=== PATIENT | female | born 1985 | race Caucasian/White ===

== ENCOUNTER → 2020-08-10 13:05 | Outpatient (BNVA) | payer OTHER, SELFPAY | PROVIDERS: Family Provider Nurse Practitioner; Visit Provider Nurse Practitioner Family | DX: Z20.828 Contact with and (suspected) exposure to other viral communicable diseases (principal) | CPT/HCPCS: 87635 ==

== ENCOUNTER 2021-05-05 12:59 | Observation (INO) | payer SELFPAY ==
[2021-05-05] VITALS (9 sets, daily range): BP systolic 100–144; BP diastolic 60–79; PULSE 50–81; RESP 16–18; TEMP 36.3–37.2; O2SAT 97–98; BMI 28.3; BMI 27.6
--- NOTE | 2021-05-05 13:46 | W.ED.ABDPA2 ---
Documented by User: MIR Piper 05/05/21 16:41 HPI - Abdominal Pain General: Chief Complaint: Abdominal Pain Stated Complaint: Lower right abd pain Time Seen by Provider: 05/05/21 13:40 Source: patient Mode of arrival: ambulatory Limitations: no limitations History of Present Illness: HPI narrative: Patient is a nice 35-year-old female who presents to ED today with a complaint of right lower abdominal pain that is been present over the past month. When asked what changed that made her seek emergent evaluation today she tells me that she is tired of doubling over in pain . She states pain seems to be worse with certain movements and states it is slightly alleviated by putting pressure to the area. She states there are periods where she does not have any discomfort but overall her pain has been fairly constant. She states when pain becomes severe she gets pale and diaphoretic. She reports nausea currently. She has not had any episodes of vomiting. She continues to have normal urinary and bowel habits. No fevers. States she had a hysterectomy several years ago. No masses/bulges felt. MD elicited complaint: abdominal pain Pertinent past history: none Onset (ago): week(s) Pain Consistency: intermittent Location: RLQ Radiation: none Migration to: no migration Associated Symptoms: Reports nausea; Denies change in stool character, chills, diarrhea, dysuria, fever(s) and vomiting Review of Systems Const: Denies: fever(s), chills, body aches, change in appetite, fatigue or malaise Card: Denies: chest pain Resp: Denies: dyspnea GI: Reports: abdominal pain and nausea; Denies: vomiting, diarrhea or change in stool character : Denies: flank pain, difficulty voiding, dysuria, urinary frequency, urinary urgency, vaginal odor, vaginal bleeding or vaginal discharge Musc: Denies: back pain Skin/Breast: Denies: rash Neuro: Denies: headache(s) PFSH ED PFSH: Medical History Cervical cancer Hepatitis C virus infection cured after antiviral drug therapy Quit drug use in remote past Smoker Surgical History H/O: hysterectomy History of lung surgery Family History Grandmother Chronic kidney disease (CKD) Social History Smoking and tobacco status: current every day smoker cigarettes Packs smoked per day: 0.25 Alcohol intake: never Substance/Drug Use: former Lives independently: Yes Household members: spouse Marital status: Physical Exam Const: COMMON NORMALS: no acute distress, average body habitus, patient oriented x3, no limitations, healthy appearing, alert and well nourished GENERAL APPEARANCE: cooperative Resp: COMMON NORMALS: normal respiratory effort and clear to auscultation bilaterally AUSCULTATION: clear to auscultation bilaterally Cardio: COMMON NORMALS: regular rate and regular rhythm RATE: regular rate RHYTHM: regular rhythm GI: COMMON NORMALS: Normal to inspection, nondistended, normoactive bowel sounds present, Soft to palpation, No hepatosplenomegaly present and no masses INSPECTION: Yes normal to inspection AUSCULTATION: Yes normoactive bowel sounds PALPATION: Yes Soft to palpation and Yes No hepatosplenomegaly present : COMMON NORMALS: Yes no CVA tenderness BLADDER/KIDNEY EXAM: Yes no CVA tenderness Back/Pelvis: COMMON NORMALS: no CVA tenderness Neuro: COMMON NORMALS: patient oriented x3 SENSORIUM/ORIENTATION: Yes alert Skin: COMMON NORMALS: no rashes or lesions noted GENERAL SKIN EXAM: no rashes or lesions noted Course Consultations: Consultation #1: Dr. Florence-accepts patient to observation; requests I speak to nephrology to have them onboard as well Consultation #2: Dr. Arnold/nephrology-graciously will follow patient while in hospital Vital Signs: Vital signs: Vital Signs Temperature 98.1 F 05/06/21 11:11 Pulse Rate 65 05/06/21 11:11 Respiratory Rate 16 05/06/21 11:11 Blood Pressure 131/79 05/06/21 11:11 Pulse Oximetry 97 05/06/21 11:11 MDM - Abdominal Pain Lab Data: Labs: Lab Results 05/05/21 05/05/21 05/05/21 Range/Units 14:38 14:38 14:38 WBC 11.4 H (4.0-10.0) 10^3/ uL RBC 4.93 (4.1-5.3) 10^6/u L Hgb 15.6 H (11.5-15.3) g/dL Hct 45.7 (37.0-47.0) % MCV 92.7 (81-99) fl MCH 31.6 (28.0-34.0) pg MCHC 34.1 (30.0-36.0) g/dL RDW 12.2 (12.1-15.1) % Plt Count 354 (130-400) 10^3/c mm MPV 10.1 (7.4-10.4) fL Neut % (Auto) 58.8 % Lymph % (Auto) 33.0 % Garden % (Auto) 6.1 % Eos % (Auto) 1.1 % Baso % (Auto) 0.7 % Neut # (Auto) 6.70 (1.8-7.7) 10^3/u L Lymph # (Auto) 3.8 (0.8-4.8) 10^3/u L Garden # (Auto) 0.7 (0.2-0.9) 10^3/u L Eos # (Auto) 0.1 (0.0-0.8) 10^3/u L Baso # (Auto) 0.1 (0.0-0.1) 10^3/u L Nucleated RBC % (a uto) 0 % Nucleated RBCs # 0.0 /100WBC Sodium Cancelled Potassium Cancelled Chloride Cancelled Carbon Dioxide Cancelled Anion Gap Cancelled BUN Cancelled Creatinine Cancelled GFR Calculation Cancelled Glucose Cancelled Calculated Osmolal ity Cancelled Calcium Cancelled Total Bilirubin Cancelled AST Cancelled ALT Cancelled Alkaline Phosphata se Cancelled Creatine Kinase (26-192) U/L Total Protein Cancelled Albumin Cancelled Globulin Cancelled Lipase (13-60) U/L HCG, Qual Negative (Negative) Urine Color (Yellow) Urine Appearance (CLEAR) Urine pH (5-7) Ur Specific Gravit y (1.005-1.030) Urine Protein (Negative) Urine Glucose (UA) (Normal) Urine Ketones (Negative) Urine Blood (Negative) Urine Nitrate (Negative) Urine Bilirubin (Negative) Urine Urobilinogen (Negative) mg/dL Ur Leukocyte Karon ase (Negative) Urine RBC (0-2) /hpf Urine WBC (0-5) /hpf Ur Squamous Epith Cells (0-5) /hpf Amorphous Sediment Urine Bacteria (NONE) /hpf Urine Mucus /hpf Ur Random Sodium mmol/L Ur Random Potassiu m mmol/L Ur Random Chloride mmol/L Urine Creatinine (28-217) mg/dL 05/05/21 05/05/21 05/05/21 Range/Units 14:38 14:38 14:38 WBC (4.0-10.0) 10^3/ uL RBC (4.1-5.3) 10^6/u L Hgb (11.5-15.3) g/dL Hct (37.0-47.0) % MCV (81-99) fl MCH (28.0-34.0) pg MCHC (30.0-36.0) g/dL RDW (12.1-15.1) % Plt Count (130-400) 10^3/c mm MPV (7.4-10.4) fL Neut % (Auto) % Lymph % (Auto) % Garden % (Auto) % Eos % (Auto) % Baso % (Auto) % Neut # (Auto) (1.8-7.7) 10^3/u L Lymph # (Auto) (0.8-4.8) 10^3/u L Garden # (Auto) (0.2-0.9) 10^3/u L Eos # (Auto) (0.0-0.8) 10^3/u L Baso # (Auto) (0.0-0.1) 10^3/u L Nucleated RBC % (a uto) % Nucleated RBCs # /100WBC Sodium Potassium Chloride Carbon Dioxide Anion Gap BUN Creatinine GFR Calculation Glucose Calculated Osmolal ity Calcium Total Bilirubin AST ALT Alkaline Phosphata se Creatine Kinase 91 (26-192) U/L Total Protein Albumin Globulin Lipase 43 (13-60) U/L HCG, Qual (Negative) Urine Color Yellow (Yellow) Urine Appearance Hazy A (CLEAR) Urine pH 5 (5-7) Ur Specific Gravit y 1.020 (1.005-1.030) Urine Protein Neg (Negative) Urine Glucose (UA) Norm (Normal) Urine Ketones Negative (Negative) Urine Blood Trace H (Negative) Urine Nitrate Negative (Negative) Urine Bilirubin Neg (Negative) Urine Urobilinogen 1 H (Negative) mg/dL Ur Leukocyte Karon ase Trace H (Negative) Urine RBC 0-4 H (0-2) /hpf Urine WBC 5-10 H (0-5) /hpf Ur Squamous Epith Cells 5-10 H (0-5) /hpf Amorphous Sediment Not Reportable Urine Bacteria 1+ H (NONE) /hpf Urine Mucus 2+ /hpf Ur Random Sodium mmol/L Ur Random Potassiu m mmol/L Ur Random Chloride mmol/L Urine Creatinine (28-217) mg/dL 05/05/21 05/05/21 Range/Units 14:38 14:38 WBC (4.0-10.0) 10^3/ uL RBC (4.1-5.3) 10^6/u L Hgb (11.5-15.3) g/dL Hct (37.0-47.0) % MCV (81-99) fl MCH (28.0-34.0) pg MCHC (30.0-36.0) g/dL RDW (12.1-15.1) % Plt Count (130-400) 10^3/c mm MPV (7.4-10.4) fL Neut % (Auto) % Lymph % (Auto) % Garden % (Auto) % Eos % (Auto) % Baso % (Auto) % Neut # (Auto) (1.8-7.7) 10^3/u L Lymph # (Auto) (0.8-4.8) 10^3/u L Garden # (Auto) (0.2-0.9) 10^3/u L Eos # (Auto) (0.0-0.8) 10^3/u L Baso # (Auto) (0.0-0.1) 10^3/u L Nucleated RBC % (a uto) % Nucleated RBCs # /100WBC Sodium Potassium Chloride Carbon Dioxide Anion Gap BUN Creatinine GFR Calculation Glucose Calculated Osmolal ity Calcium Total Bilirubin AST ALT Alkaline Phosphata se Creatine Kinase (26-192) U/L Total Protein Albumin Globulin Lipase (13-60) U/L HCG, Qual (Negative) Urine Color (Yellow) Urine Appearance (CLEAR) Urine pH (5-7) Ur Specific Gravit y (1.005-1.030) Urine Protein (Negative) Urine Glucose (UA) (Normal) Urine Ketones (Negative) Urine Blood (Negative) Urine Nitrate (Negative) Urine Bilirubin (Negative) Urine Urobilinogen (Negative) mg/dL Ur Leukocyte Karon ase (Negative) Urine RBC (0-2) /hpf Urine WBC (0-5) /hpf Ur Squamous Epith Cells (0-5) /hpf Amorphous Sediment Urine Bacteria (NONE) /hpf Urine Mucus /hpf Ur Random Sodium 156 157 mmol/L Ur Random Potassiu m 49 mmol/L Ur Random Chloride 147 mmol/L Urine Creatinine 146 (28-217) mg/dL Discharge Plan Discharge Patient Disposition: Placed in Observation Admit Provider: Bryan Florence Clinical Impression: Abdominal pain of unknown cause, Acute renal failure, Acute hyponatremia Discharge Diet: Usual diet Discharge Activity: Increase activity as tolerated Coding Level of Care Code ED Upfitter for Chg Fwd Exam Detailed Documented by User: Shelly Garcia MD 05/08/21 10:47 HPI - Abdominal Pain General: Chief Complaint: Abdominal Pain Stated Complaint: Lower right abd pain Time Seen by Provider: 05/05/21 13:40 PFSH ED PFSH: Medical History Cervical cancer Hepatitis C virus infection cured after antiviral drug therapy Quit drug use in remote past Smoker Surgical History H/O: hysterectomy History of lung surgery Family History Grandmother Chronic kidney disease (CKD) Social History Smoking and tobacco status: current every day smoker cigarettes Packs smoked per day: 0.25 Alcohol intake: never Substance/Drug Use: former Lives independently: Yes Household members: spouse Marital status: Course Vital Signs: Vital signs: Vital Signs Temperature 98.1 F 05/06/21 11:11 Pulse Rate 65 05/06/21 11:11 Respiratory Rate 16 05/06/21 11:11 Blood Pressure 131/79 05/06/21 11:11 Pulse Oximetry 97 05/06/21 11:11 MDM - Abdominal Pain Lab Data: Labs: Lab Results 05/05/21 05/05/21 05/05/21 Range/Units 14:38 14:38 14:38 WBC 11.4 H (4.0-10.0) 10^3/ uL RBC 4.93 (4.1-5.3) 10^6/u L Hgb 15.6 H (11.5-15.3) g/dL Hct 45.7 (37.0-47.0) % MCV 92.7 (81-99) fl MCH 31.6 (28.0-34.0) pg MCHC 34.1 (30.0-36.0) g/dL RDW 12.2 (12.1-15.1) % Plt Count 354 (130-400) 10^3/c mm MPV 10.1 (7.4-10.4) fL Neut % (Auto) 58.8 % Lymph % (Auto) 33.0 % Garden % (Auto) 6.1 % Eos % (Auto) 1.1 % Baso % (Auto) 0.7 % Neut # (Auto) 6.70 (1.8-7.7) 10^3/u L Lymph # (Auto) 3.8 (0.8-4.8) 10^3/u L Garden # (Auto) 0.7 (0.2-0.9) 10^3/u L Eos # (Auto) 0.1 (0.0-0.8) 10^3/u L Baso # (Auto) 0.1 (0.0-0.1) 10^3/u L Nucleated RBC % (a uto) 0 % Nucleated RBCs # 0.0 /100WBC Sodium Cancelled Potassium Cancelled Chloride Cancelled Carbon Dioxide Cancelled Anion Gap Cancelled BUN Cancelled Creatinine Cancelled GFR Calculation Cancelled Glucose Cancelled Calculated Osmolal ity Cancelled Calcium Cancelled Total Bilirubin Cancelled AST Cancelled ALT Cancelled Alkaline Phosphata se Cancelled Creatine Kinase (26-192) U/L Total Protein Cancelled Albumin Cancelled Globulin Cancelled Lipase (13-60) U/L HCG, Qual Negative (Negative) Urine Color (Yellow) Urine Appearance (CLEAR) Urine pH (5-7) Ur Specific Gravit y (1.005-1.030) Urine Protein (Negative) Urine Glucose (UA) (Normal) Urine Ketones (Negative) Urine Blood (Negative) Urine Nitrate (Negative) Urine Bilirubin (Negative) Urine Urobilinogen (Negative) mg/dL Ur Leukocyte Karon ase (Negative) Urine RBC (0-2) /hpf Urine WBC (0-5) /hpf Ur Squamous Epith Cells (0-5) /hpf Amorphous Sediment Urine Bacteria (NONE) /hpf Urine Mucus /hpf Ur Random Sodium mmol/L Ur Random Potassiu m mmol/L Ur Random Chloride mmol/L Urine Creatinine (28-217) mg/dL 05/05/21 05/05/21 05/05/21 Range/Units 14:38 14:38 14:38 WBC (4.0-10.0) 10^3/ uL RBC (4.1-5.3) 10^6/u L Hgb (11.5-15.3) g/dL Hct (37.0-47.0) % MCV (81-99) fl MCH (28.0-34.0) pg MCHC (30.0-36.0) g/dL RDW (12.1-15.1) % Plt Count (130-400) 10^3/c mm MPV (7.4-10.4) fL Neut % (Auto) % Lymph % (Auto) % Garden % (Auto) % Eos % (Auto) % Baso % (Auto) % Neut # (Auto) (1.8-7.7) 10^3/u L Lymph # (Auto) (0.8-4.8) 10^3/u L Garden # (Auto) (0.2-0.9) 10^3/u L Eos # (Auto) (0.0-0.8) 10^3/u L Baso # (Auto) (0.0-0.1) 10^3/u L Nucleated RBC % (a uto) % Nucleated RBCs # /100WBC Sodium Potassium Chloride Carbon Dioxide Anion Gap BUN Creatinine GFR Calculation Glucose Calculated Osmolal ity Calcium Total Bilirubin AST ALT Alkaline Phosphata se Creatine Kinase 91 (26-192) U/L Total Protein Albumin Globulin Lipase 43 (13-60) U/L HCG, Qual (Negative) Urine Color Yellow (Yellow) Urine Appearance Hazy A (CLEAR) Urine pH 5 (5-7) Ur Specific Gravit y 1.020 (1.005-1.030) Urine Protein Neg (Negative) Urine Glucose (UA) Norm (Normal) Urine Ketones Negative (Negative) Urine Blood Trace H (Negative) Urine Nitrate Negative (Negative) Urine Bilirubin Neg (Negative) Urine Urobilinogen 1 H (Negative) mg/dL Ur Leukocyte Karon ase Trace H (Negative) Urine RBC 0-4 H (0-2) /hpf Urine WBC 5-10 H (0-5) /hpf Ur Squamous Epith Cells 5-10 H (0-5) /hpf Amorphous Sediment Not Reportable Urine Bacteria 1+ H (NONE) /hpf Urine Mucus 2+ /hpf Ur Random Sodium mmol/L Ur Random Potassiu m mmol/L Ur Random Chloride mmol/L Urine Creatinine (28-217) mg/dL 05/05/21 05/05/21 Range/Units 14:38 14:38 WBC (4.0-10.0) 10^3/ uL RBC (4.1-5.3) 10^6/u L Hgb (11.5-15.3) g/dL Hct (37.0-47.0) % MCV (81-99) fl MCH (28.0-34.0) pg MCHC (30.0-36.0) g/dL RDW (12.1-15.1) % Plt Count (130-400) 10^3/c mm MPV (7.4-10.4) fL Neut % (Auto) % Lymph % (Auto) % Garden % (Auto) % Eos % (Auto) % Baso % (Auto) % Neut # (Auto) (1.8-7.7) 10^3/u L Lymph # (Auto) (0.8-4.8) 10^3/u L Garden # (Auto) (0.2-0.9) 10^3/u L Eos # (Auto) (0.0-0.8) 10^3/u L Baso # (Auto) (0.0-0.1) 10^3/u L Nucleated RBC % (a uto) % Nucleated RBCs # /100WBC Sodium Potassium Chloride Carbon Dioxide Anion Gap BUN Creatinine GFR Calculation Glucose Calculated Osmolal ity Calcium Total Bilirubin AST ALT Alkaline Phosphata se Creatine Kinase (26-192) U/L Total Protein Albumin Globulin Lipase (13-60) U/L HCG, Qual (Negative) Urine Color (Yellow) Urine Appearance (CLEAR) Urine pH (5-7) Ur Specific Gravit y (1.005-1.030) Urine Protein (Negative) Urine Glucose (UA) (Normal) Urine Ketones (Negative) Urine Blood (Negative) Urine Nitrate (Negative) Urine Bilirubin (Negative) Urine Urobilinogen (Negative) mg/dL Ur Leukocyte Karon ase (Negative) Urine RBC (0-2) /hpf Urine WBC (0-5) /hpf Ur Squamous Epith Cells (0-5) /hpf Amorphous Sediment Urine Bacteria (NONE) /hpf Urine Mucus /hpf Ur Random Sodium 156 157 mmol/L Ur Random Potassiu m 49 mmol/L Ur Random Chloride 147 mmol/L Urine Creatinine 146 (28-217) mg/dL Discharge Plan Discharge Patient Disposition: Placed in Observation Admit Provider: Bryan Florence Clinical Impression: Abdominal pain of unknown cause, Acute renal failure, Acute hyponatremia Discharge Diet: Usual diet Discharge Activity: Increase activity as tolerated Coding Level of Care Code ED Upfitter for Chg Fwd Exam Detailed
[2021-05-05 14:45] LABS: Basophils # 0.1 10^3/uL (0.0-0.1); Basophils % 0.7 %; Eosinophils # 0.1 10^3/uL (0.0-0.8); Eosinophils % 1.1 %; Hematocrit 45.7 % (37.0-47.0); Hemoglobin 15.6 g/dL (11.5-15.3); Lymphocytes # 3.8 10^3/uL (0.8-4.8); Mean Corpuscular HGB Conc 34.1 g/dL (30.0-36.0); Mean Corpuscular Hemoglobin 31.6 pg (28.0-34.0); Mean Corpuscular Volume 92.7 fl (81-99); Mean Platelet Volume 10.1 fL (7.4-10.4); Monocytes # 0.7 10^3/uL (0.2-0.9); Monocytes % 6.1 %; Neutrophils % 58.8 %; Nucleated Red Blood Cells % 0 %; Platelet Count 354 10^3/cmm (130-400); Red Blood Count 4.93 10^6/uL (4.1-5.3); Red Cell Distribution Width 12.2 % (12.1-15.1); White Blood Count 11.4 10^3/uL (4.0-10.0)
[2021-05-05 15:07] LABS: Urine Appearance Hazy (CLEAR); Urine Color Yellow (Yellow); pH Urine 5 (5-7)
[2021-05-05 15:08] LABS: Add Urine Culture? No; Add Urine Microscopic? YES; Bacteria Urine 1+ /hpf; Bilirubin Urine Neg (Negative); Blood Urine Trace (Negative); Glucose Urine UA Norm (Normal); Ketones Urine Negative (Negative); Leukocyte Esterase Urine Trace (Negative); Mucus Urine 2+ /hpf; Nitrate Urine Negative (Negative); Protein Urine Neg (Negative); RBC Urine 0-4 /hpf (0-2); Urobilinogen Urine 1 mg/dL (Negative)
[2021-05-05 15:17] LABS: HCG, Serum Qual Negative (Negative)
--- NOTE | 2021-05-05 15:17 | CTR_ITS ---
PROCEDURE INFORMATION: Exam: CT Abdomen And Pelvis Without Contrast Exam date and time: 05/05/2021 3:17 PM Age: 35 years old Clinical indication: Abdominal pain; Localized; Right lower quadrant (rlq); Prior surgery; Surgery type: Hyst; Patient HX: Rlq pain x 1 month. Nausea today; Additional info: R lower abdominal pain TECHNIQUE: Imaging protocol: Computed tomography of the abdomen and pelvis without contrast. Axial, coronal and sagittal reformatted images were created and reviewed. Radiation optimization: All CT scans at this facility use at least one of these dose optimization techniques: automated exposure control; mA and/or kV adjustment per patient size (includes targeted exams where dose is matched to clinical indication); or iterative reconstruction. COMPARISON: abdomen limited [id number] 02/04/2016 7:24 AM RADIATION DOSE METRICS: Total DLP (mGy-cm): 1462.97 FINDINGS: Liver: Mild hepatomegaly. Gallbladder and bile ducts: No radiodense gallstones. No biliary ductal dilatation. Pancreas: Unremarkable. Spleen: Unremarkable. Adrenal glands: Normal. No mass. Kidneys and ureters: Punctate nonobstructing bilateral renal calculi. No hydronephrosis. Stomach and bowel: No bowel wall thickening. No obstruction. No pneumatosis. Appendix: Normal. Intraperitoneal space: Trace nonspecific free pelvic fluid, likely physiologic. No organized fluid collection. No free air. Vasculature: Minimal atherosclerotic disease. No aneurysm. Lymph nodes: No pathologically enlarged lymph nodes. Urinary bladder: Unremarkable as visualized. Reproductive: Status post hysterectomy Bones/joints: No acute osseous abnormality. Soft tissues: Small, fat containing umbilical hernia. CT/CT abdomen pelvis [facility] [id number] IMPRESSION: 1. Limited noncontrast examination without CT evidence of acute intra-abdominal or pelvic pathology. 2. Additional findings, as above. Radiation Dose CTDIVOL = (mGy): DLP = 1462.97 (mGy-cm)
[2021-05-05 15:43] LABS: Lipase 43 U/L (13-60)
--- NOTE | 2021-05-05 16:50 | P.CONIM_ITS ---
Providers/Reason For Consult Consulting Physician/Specialty*: geena rivera md / telenephrology Reason for Consult*: hyponatremia, DELTA Requesting Physician: Dr. Florence Attending Physician: Dr. Florence History of Present Illness History of Present Illness Indu Thompson is a 35 year old female h/o cervical ca s/o TAHBSO in her 20's, h/o of a partial lung resection, and h/o former drug use w/ hep c+ s/p therapy. Pt is here c/o RLQ abd pain. pt was found to have DELTA, hyponatremia, and mild met alkalosis and renal is called to consult. pt takes tylenol or a headache medicine at home Review of Systems General: Reports: 10 or more systems reviewed and unremarkable except in HPI and below Narrative: RLQ pain, denies dysuria, + constipation. no dao, no sob, no cp, minimal leg edema Meds/Allergies Home Medications and Allergies Home Medications Medication Instructions Recorded Confirmed Last Taken Type No Known Home Medications 08/10/20 05/05/21 Unknown History Allergies Allergy/AdvReac Type Severity Reaction Status Date / Time Penicillins Allergy Unknown UNKNOWN Verified 05/05/21 13:06 PFSH Acute PFSH: Social History (Updated 08/10/20 @ 10:36 by Lilibeth Gonsales LPN) Smoking and tobacco status: current every day smoker cigarettes Packs smoked per day: 0.25 Alcohol intake: never Vitals/I&O/Wt Last Vital Signs Temp 98.6 F 05/05/21 13:03 Pulse 50 L 05/05/21 16:00 Resp 18 05/05/21 16:00 BP 104/60 05/05/21 16:00 Pulse Ox 97 05/05/21 16:00 Weight last 48 hrs Weight 74.843 kg Physical Exam Narrative: EXAM NARRATIVE: NARD in bed vs noted - BP on low side heent- nc/at, eomi neck supple lungs clear b/l heart- reg abd soft, nt, nd, +BS ext trace edema b/l skin+ tatoos neuro- a,a, o x 3 A&P Additional A&P Information 35 yr old female s/p CELINE BSO for cervical ca, s/p rx for hep c, h/o partial lung resection. Ex- drug use, + tob and marijuana, no etoh use. 1. RLQ pain- CT reviewed -Adrenal glands: Normal. No mass. Kidneys and ureters: Punctate nonobstructing bilateral renal calculi. No hydronephrosis. Q if she passed a stone 2. DELTA-u/a w/ trace blood 0-4 rbc, 5-10 wbc, 5-10 sq epi no hydronephrosis -send serologies -concern for MPGN if hep c is not treated- check ab and VL -agree w/ checkng cryoglobins -check ASLO -check hep b -check hiv -give ns ivf -ag 3. hyponatremia- check ur lytes check tsh and cortisol levels -fluid restrict 4. normal bicarb w/ delta- is c/w met alklaosis- monitor pt seen and examined w/ RN- telehealth visit -informed consent for telehealth visit obtained time spent > 50 minutes Consult Attestations Medical Necessity Statement: delta, hyponatremia Time Spent in Patient Care: Greater than 35 minutes Coding Level of Care Code Acute [employer] Tester for Eli Hewitt
[2021-05-05] MEDS: sodium chloride 0.9% 1,000 ML 999 ML IV (17:05)
[2021-05-05 17:49] LABS: Creatine Phosphokinase 91 U/L (26-192); Urine Creatinine 146 mg/dL (28-217); Urine Random Sodium 156 mmol/L
--- NOTE | 2021-05-05 19:33 | PC.NURSE ---
ADMIT NOTE Pt received to floor from ER at 0650 per ibeth. Is alert and oriented. Denies pain at present. Says she has been having pain in RLQ abdomen. Says right now has no pain but is tender in RLQ, Abdomen soft. Became a little emotional when she was talking about the Renal Failure discovered. Denies having any problems with her urination. Says was very surprised by findings. Instructed on need to start 24 hour urine collection. To bathroom and urinated, urine discarded and collection to start now. IV infusing without difficulty. Was also instructed on 1400ml fluid restriction and need to monitor I&O
[2021-05-05 20:02] LABS: Potassium, Radom Urine 49 mmol/L; Urine Random Chloride 147 mmol/L; Urine Random Sodium 157 mmol/L
[2021-05-05 20:06] LABS: Alanine Aminotransferase 8 U/L (0-33); Albumin Level 4.3 g/dL (3.5-5.2); Alkaline Phosphatase 58 IU/L (35-105); Anion Gap 16.2 (5-19); Aspartate Amino Transferase 14 U/L (0-32); Blood Urea Nitrogen 10 mg/dL (6-20); Calcium 8.7 mg/dL (8.5-10.5); Carbon Dioxide 22 mmol/L (22-29); Chloride 106 mmol/L (98-107); Creatinine Clr Calc Pharmacy 152.3211; Globulin 2.2 g/dL (1.3-4.6); Glomerular Filtration Rate 139.6 mL/min (90-130); Glucose 82 mg/dL (65-115); Osmolality Calculated 288 mOsm/kg (285-295); Potassium 4.2 mmol/L (3.5-5.1); Sodium 140 mmol/L (136-145); Total Bilirubin 0.2 mg/dL (0.15-1.2); Total Protein 6.5 g/dL (6.6-8.7); Uric Acid 2.9 mg/dL (2.4-5.7)
[2021-05-05 20:10] LABS: Complement C3 132 mg/dL (90-180); Thyroid Stimulating Hormone 1.66 uIU/mL (0.27-4.20)
[2021-05-05 20:26] LABS: Hepatitis B Core AB, Total Non-Reactive (Nonreactive); Hepatitis B Surface AB 8.6 (11.5-1000); Hepatitis B Surface Antigen Non-Reactive (Nonreactive); Hepatitis C Virus Antibody Reactive (Nonreactive)
[2021-05-05 20:27] LABS: HIV 1 & 2 Antibody Non-Reactive (Non-Reactiv); HIV 1 & 2 Antigen Non-Reactive (Non-Reactiv)
[2021-05-05 20:40] LABS: INR 0.94 (0.8-1.2)
--- NOTE | 2021-05-05 20:56 | PM.HP ---
Providers/Chief Complaint Admitting Physician: Bryan Florence Chief Complaint: Lower right abd pain History of Present Illness Pleasant 35-year-old lady with remote history of drug addiction, has not used in at least 6 years, with hepatitis C history which has been treated, with history of complicated pneumonia, empyema, thoracotomy, partial lung resection on the right, prediabetes in childhood, history of cervical cancer with hysterectomy, presented due to a month-long history of right lower quadrant intermittent pain relieved only by bending over or applying pressure to it. Denies any change in bowel habits, denies any change in urine color, blood in urine. Reports about 2 weeks ago followed up with her primary provider due to this and was referred for ultrasound of her appendix but could not get in for an appointment. In ER she undergoes CT abdomen pelvis which shows unremarkable right lower quadrant on the limited noncontrast examination without acute intra-abdominal or pelvic pathology. Noted punctate nonobstructing bilateral renal calculi. On laboratory work-up she is found to have new renal failure of unknown acuity with creatinine of 4.4. Urinalysis with minimal RBC, 0-4, small amount of WBC, 5-10 with 5-10 squamous epithelial cells. She denies any recent urinary symptoms. Denies any NSAID use. Does not take any medications apart from occasional Tylenol. Occasional muscle relaxer. Denies any severe dehydration. CK is normal. She reports history of renal failure in her great-grandmother. In ER she is started on gentle IV hydration. Nephrology consultation is obtained. Review of Systems Const: Denies: fever(s), chills, body aches or malaise Eyes: Denies: change in vision or eye redness ENMT: Denies: throat pain, oral sores or ear or mastoid pain Card: Denies: chest pain, edema, pre-syncope or dyspnea on exertion Resp: Denies: dyspnea, productive cough, change in phlegm color or hemoptysis GI: Reports: abdominal pain; Denies: nausea, vomiting, diarrhea, constipation, hematochezia or melena : Denies: flank pain, urinary frequency or hematuria Musc: Denies: back pain, joint swelling or joint redness Skin/Breast: Denies: rash, sores or new lesions Neuro: Denies: headache(s), numbness in extremities, weakness in extremities, dizziness, confusion or seizure-like activity Endo: Denies: polyuria or polydipsia Reggie/Lymph: Denies: easy bleeding or purpura All/Imm: Denies: urticaria, throat swelling or tongue swelling Medications/Allergies Home Medications Medication Instructions Recorded Confirmed Last Taken Type No Known Home Medications 08/10/20 05/05/21 Unknown History Allergies Allergy/AdvReac Type Severity Reaction Status Date / Time Penicillins Allergy Unknown UNKNOWN Verified 05/05/21 13:06 PFSH Acute PFSH: Medical History Cervical cancer Hepatitis C virus infection cured after antiviral drug therapy Quit drug use in remote past Smoker Surgical History H/O: hysterectomy History of lung surgery Family History Grandmother Chronic kidney disease (CKD) Social History Smoking and tobacco status: current every day smoker cigarettes Packs smoked per day: 0.25 Alcohol intake: never Substance/Drug Use: former Lives independently: Yes Household members: spouse Marital status: Vitals/I&O/Wt Last Vital Signs Temp 98.9 F 05/05/21 18:30 Pulse 64 05/05/21 18:30 Resp 17 05/05/21 18:30 BP 127/78 05/05/21 18:30 Pulse Ox 98 05/05/21 18:30 05/05/21 05/05/21 05/05/21 06:59 14:59 22:59 Output Total 150 / 150 Balance -150 / -150 Weight last 48 hrs Weight 73.028 kg Weight 74.843 kg Physical Exam Const: COMMON NORMALS: no acute distress and patient oriented x3 HENMT: COMMON NORMALS: oropharynx normal Neck/C-Spine: COMMON NORMALS: no JVD Resp: COMMON NORMALS: normal respiratory effort and clear to auscultation bilaterally AUSCULTATION: clear to auscultation bilaterally Cardio: COMMON NORMALS: no JVD, regular rhythm, S1 normal heart sound present, S2 normal heart sound present and No murmurs present (Cardio) RHYTHM: regular rhythm HEART SOUNDS: S1 normal heart sound present and S2 normal heart sound present GI: COMMON NORMALS: Normal to inspection, nondistended, normoactive bowel sounds present, Soft to palpation and non-tender PALPATION: Yes Soft to palpation Extremity: COMMON NORMALS: no joint enlargement and no pedal edema Neuro: COMMON NORMALS: patient oriented x3 and moves all extremities Skin: COMMON NORMALS: no rashes or lesions noted GENERAL SKIN EXAM: no rashes or lesions noted Data : 05/05/21 14:38 05/05/21 18:23 A&P Assessment and plan (1) Acute renal failure: Creatinine noted 4.4, without known chronic kidney disease. Does not appear to have any obvious triggers of acute kidney injury. Started on gentle IV rehydration in ER. CK is normal. Not taking NSAIDs. No hypotension. No recent nausea, vomiting. No hematuria or urine color changes. Minute renal stones, nonobstructive. At the same time in ICU repeat has been sent, and the lab results look very different. Creatinine 0.5 currently. BUN 10. Discussed with lab, they will be looking into this, unclear which sample is correct. They will send for a redraw. Prior to repeat result, additional studies had been ordered including immunological, cryoglobulins given history of hepatitis C. SPEP, immunofixation, light chains. Urine protein. In case initial sample was to erroneous 1, these studies will not be needed and will need to be canceled. Discussed with nighttime hospitalist, lab was going to redraw a sample now. If CMP returns normal, no additional testing would be needed. Status: Acute Qualifiers: Acute renal failure type: unspecified Qualified Code(s): N17.9 - Acute kidney failure, unspecified (2) Acute hyponatremia: Sodium 124. Without obvious cause. Appears euvolemic. Again as above please note recheck from later this evening appears to show normal sodium. Discussed with lab and someone is heading up now to redraw. Status: Acute (3) Abdominal pain of unknown cause: Unremarkable CT abdomen pelvis. Discussed with her with history of cervical cancer to follow-up with gynecology, with consideration of adnexal ultrasound. She verbalized understanding and intention to do so. Has minute kidney stones, although pain does not entirely resemble renal colic. No obstructive changes on CT. Status: Acute (4) Smoker: Encourage cessation. Status: Acute (5) Transaminitis: Noted mild transaminitis, noted low albumin. History of hepatitis C. Discussed with her and her . Concern whether may have developed fibrosis or even cirrhosis of the liver. However, again please note as above repeat sample does not appear to show any of these changes again. Concern for mislabeled sample. Additional redraw is being checked. In case normal, will not need additional work-up. Status: Acute Attestations Medical Necessity Statement*: Place in observation due to new onset renal failure of unknown chronicity, hyponatremia, transaminitis. Coding Level of Care Code Acute [employer] for [facility] Diagnoses Acute renal failure N17.9 Acute renal failure type: unspecified Acute hyponatremia E87.1 Abdominal pain of unknown cause R10.9 Smoker F17.200 Transaminitis R74.01
[2021-05-05 21:43] LABS: Alanine Aminotransferase 7 U/L (0-33); Albumin Level 3.8 g/dL (3.5-5.2); Alkaline Phosphatase 54 IU/L (35-105); Aspartate Amino Transferase 13 U/L (0-32); Blood Urea Nitrogen 9 mg/dL (6-20); Calcium 8.2 mg/dL (8.5-10.5); Carbon Dioxide 24 mmol/L (22-29); Chloride 108 mmol/L (98-107); Globulin 2.3 g/dL (1.3-4.6); Glomerular Filtration Rate 113.1 mL/min (90-130); Glucose 86 mg/dL (65-115); Osmolality Calculated 290 mOsm/kg (285-295); Sodium 141 mmol/L (136-145); Total Bilirubin 0.2 mg/dL (0.15-1.2); Total Protein 6.1 g/dL (6.6-8.7)
--- NOTE | 2021-05-05 22:43 | PM.EVENT ---
Event Note Event Note: Asked to follow-up repeat laboratory studies. Repeat CMP is essentially normal. As requested I have canceled all additional pending studies that have been instituted for work-up and follow-up of presumptive acute kidney injury, hyponatremia and transaminitis. Canceled fluid restriction and daily weight orders, ensured she had a regular diet order.
--- NOTE | 2021-05-05 23:16 | PC.NURSE ---
24 HR URINE/FLUID RESTRICTION Urine collection and fluid restriction orders along with several labs have been discontinued
[2021-05-06 04:05] VITALS: BP 111/70; PULSE 57; RESP 18; TEMP 36.7; O2SAT 96
--- NOTE | 2021-05-06 06:14 | PC.NURSE ---
SHIFT SUMMARY Has rested well without c/o. Is hoping to go home today. Has been up to bathroom and urinating well. RLQ abd tenderness remains but has denied pain otherwise.
[2021-05-06 07:49] VITALS: BP 131/73; PULSE 55; RESP 16; TEMP 36.5; O2SAT 95
[2021-05-06] MEDS: acetaminophen 325 mg Tablet 650 MG PO (08:50)
--- NOTE | 2021-05-06 10:17 | PM.DCS ---
Discharge Providers Date of Admission: 05/05/21 17:35 Date of Discharge: May 06, 2021 Attending Provider at Admission: Bryan Florence Attending Provider at Discharge: Bryan Florence Diagnoses at Discharge Discharge Diagnosis (1) Abdominal pain of unknown cause: Status: Acute (2) Smoker: Status: Chronic Reason for Visit Reason for Visit: Lower right abd pain Hospital Course Hospital Course Pleasant 35-year-old lady with remote history of drug addiction, has not used in at least 6 years, with hepatitis C history which has been treated, with history of complicated pneumonia, empyema, thoracotomy, partial lung resection on the right, prediabetes in childhood, history of cervical cancer with hysterectomy, presented due to a month-long history of right lower quadrant intermittent pain relieved only by bending over or applying pressure to it. Denies any change in bowel habits, denies any change in urine color, blood in urine. Reports about 2 weeks ago followed up with her primary provider due to this and was referred for ultrasound of her appendix but could not get in for an appointment. In ER she undergoes CT abdomen pelvis which shows unremarkable right lower quadrant on the limited noncontrast examination without acute intra-abdominal or pelvic pathology. Noted punctate nonobstructing bilateral renal calculi. We were called to evaluate the patient and place her in observation based on initial laboratory work which had showed new renal failure of unknown duration with creatinine 4.4, as well as hyponatremia, sodium 124, as well as mild transaminitis, but also low albumin concerning for possible liver fibrosis or cirrhosis. Additional work-up was requested, nephrology consultation was obtained. However, repeat laboratory work was done and was entirely normal, normal on confirmation as well. It appears that the initial blood sample was incorrect, mislabeled. All additional tests were canceled. Discussed with laboratory, case management so that she does not get charged. I apologized regarding the unnecessary additional tests and the time she had to spend in the hospital. She otherwise has had mild ache in the right lower quadrant, but nothing bad. On additional discussion she does have history of falling off a horse when she was younger with injury of the right hip. The hip also bothers her intermittently with exertion. Discussed with her to seek reevaluation with her gynecology given history of cervical cancer, and consider confirmatory adnexal ultrasound to exclude any pelvic pathology as the cause. However, otherwise hip pain sometimes may refer to the right groin, and perhaps could be a cause of referred pain to the right lower quadrant. She will be following up additionally with her primary doctor for reassessment and consideration of additional etiologies. Physical Exam Const: COMMON NORMALS: no acute distress and patient oriented x3 HENMT: COMMON NORMALS: oropharynx normal Neck/C-Spine: COMMON NORMALS: no JVD Resp: COMMON NORMALS: normal respiratory effort and clear to auscultation bilaterally AUSCULTATION: clear to auscultation bilaterally Cardio: COMMON NORMALS: no JVD, regular rhythm, S1 normal heart sound present, S2 normal heart sound present and No murmurs present (Cardio) RHYTHM: regular rhythm HEART SOUNDS: S1 normal heart sound present and S2 normal heart sound present GI: COMMON NORMALS: Normal to inspection, nondistended, normoactive bowel sounds present and Soft to palpation PALPATION: Yes Soft to palpation and Yes Tenderness to palpation present (GI) (Minimal discomfort right lower quadrant.) Extremity: COMMON NORMALS: no joint enlargement and no pedal edema Neuro: COMMON NORMALS: patient oriented x3 and moves all extremities Skin: COMMON NORMALS: no rashes or lesions noted GENERAL SKIN EXAM: no rashes or lesions noted Discharge Data Data Completed and Pending: Completed Studies During Hospitalization Category Date Time Status CT abdomen pelvis wo con [id number] Urge nt Cat Scan 05/05/21 15:17 Completed Labs from last 24 hours 05/05/21 05/05/21 05/05/21 21:11 18:23 18:23 WBC RBC Hgb Hct MCV MCH MCHC RDW Plt Count MPV Neut % (Auto) Lymph % (Auto) Childress % (Auto) Eos % (Auto) Baso % (Auto) Neut # (Auto) Lymph # (Auto) Child[place] # (Auto) Eos # (Auto) Baso # (Auto) Nucleated RBC % (a uto) Nucleated RBCs # PT INR Sodium 141 140 Potassium 4.0 4.2 Chloride 108 H 106 Carbon Dioxide 24 22 Anion Gap 13.0 16.2 BUN 9 10 Creatinine 0.6 0.5 GFR Calculation 113.1 139.6 H Glucose 86 82 Calculated Osmolal ity 290 288 Uric Acid Calcium 8.2 L 8.7 Total Bilirubin 0.2 0.2 AST 13 14 ALT 7 8 Alkaline Phosphata se 54 58 Creatine Kinase Total Protein 6.1 L 6.5 L Albumin 3.8 4.3 Globulin 2.3 2.2 Grnnu-2-Jfidvlnen Kseot-8-Weuwsmfae Mqsr-1-Njhdbtyq Nseh-4-Cbwzdgye Gamma Globulins Abnorm Protein Ban d 1 Lipase 25-OH Vitamin D To gaston 1,25 Dihydroxy Vit D2 1,25 Dihydroxy Vit D3 TSH HCG, Qual Urine Color Urine Appearance Urine pH Ur Specific Gravit y Urine Protein Urine Glucose (UA) Urine Ketones Urine Blood Urine Nitrate Urine Bilirubin Urine Urobilinogen Ur Leukocyte Karon ase Urine RBC Urine WBC Ur Squamous Epith Cells Amorphous Sediment Urine Bacteria Urine Mucus Ur Random Sodium Ur Random Potassiu m Ur Random Chloride Urine Creatinine U Abnormal Prot Ba nd 2 U Abnormal Prot Ba nd 3 Pro Electrophoresi s Int Serum Immunofixati on Serum Cryoglobulin s SEBASTIAN Screen SEBASTIAN Titer SEBASTIAN Titer 2 SEBASTIAN Titer 3 SEBASTIAN Pattern SEBASTIAN Pattern 2 SEBASTIAN Pattern 3 c-ANCA Antibody p-ANCA Antibody Anti-ds DNA IgG Ab Mitochon/Sm Musc A b Titr Complement C3 Complement C4 Free Selmer Light C hains Free Lambda Light Chain Free Selmer/Lambda Ratio Hep Bs Antigen Hep Bs Antibody Hep B Core Total A b Hepatitis C Antibo dy HIV 1&2 Ab & HIV 1 Ag HIV 1&2 Antibody Anti-Streptolysin O Ab Cancelled Mitochondrial DNA Scrn Ref Test Comments 05/05/21 05/05/21 05/05/21 18:23 18:23 18:23 WBC RBC Hgb Hct MCV MCH MCHC RDW Plt Count MPV Neut % (Auto) Lymph % (Auto) Child[place] % (Auto) Eos % (Auto) Baso % (Auto) Neut # (Auto) Lymph # (Auto) Child[place] # (Auto) Eos # (Auto) Baso # (Auto) Nucleated RBC % (a uto) Nucleated RBCs # PT INR Sodium Potassium Chloride Carbon Dioxide Anion Gap BUN Creatinine GFR Calculation Glucose Calculated Osmolal ity Uric Acid Calcium Total Bilirubin AST ALT Alkaline Phosphata se Creatine Kinase Total Protein Albumin Globulin Iccsx-0-Bksxqdmpx Gtccf-0-Mofsgrnlu Gpfe-5-Igcvqsso Vqwr-1-Gzwmfdcx Gamma Globulins Abnorm Protein Ban d 1 Lipase 25-OH Vitamin D To gaston Cancelled 1,25 Dihydroxy Vit D2 Cancelled 1,25 Dihydroxy Vit D3 Cancelled TSH HCG, Qual Urine Color Urine Appearance Urine pH Ur Specific Gravit y Urine Protein Urine Glucose (UA) Urine Ketones Urine Blood Urine Nitrate Urine Bilirubin Urine Urobilinogen Ur Leukocyte Karon ase Urine RBC Urine WBC Ur Squamous Epith Cells Amorphous Sediment Urine Bacteria Urine Mucus Ur Random Sodium Ur Random Potassiu m Ur Random Chloride Urine Creatinine U Abnormal Prot Ba nd 2 U Abnormal Prot Ba nd 3 Pro Electrophoresi s Int Serum Immunofixati on Serum Cryoglobulin s SEBASTIAN Screen SEBASTIAN Titer SEBASTIAN Titer 2 Cancelled SEBASTIAN Titer 3 Cancelled SEBASTIAN Pattern SEBASTIAN Pattern 2 Cancelled SEBASTIAN Pattern 3 Cancelled c-ANCA Antibody Cancelled p-ANCA Antibody Cancelled Anti-ds DNA IgG Ab Mitochon/Sm Musc A b Titr Complement C3 Complement C4 Free Selmer Light C hains Free Lambda Light Chain Free Selmer/Lambda Ratio Hep Bs Antigen Hep Bs Antibody Hep B Core Total A b Hepatitis C Antibo dy HIV 1&2 Ab & HIV 1 Ag Non-reactive HIV 1&2 Antibody Non-reactive Anti-Streptolysin O Ab Mitochondrial DNA Scrn Ref Test Comments Cancelled 05/05/21 05/05/21 05/05/21 18:23 18:23 18:23 WBC RBC Hgb Hct MCV MCH MCHC RDW Plt Count MPV Neut % (Auto) Lymph % (Auto) Childress % (Auto) Eos % (Auto) Baso % (Auto) Neut # (Auto) Lymph # (Auto) Child[place] # (Auto) Eos # (Auto) Baso # (Auto) Nucleated RBC % (a uto) Nucleated RBCs # PT 12.80 INR 0.94 Sodium Potassium Chloride Carbon Dioxide Anion Gap BUN Creatinine GFR Calculation Glucose Calculated Osmolal ity Uric Acid 2.9 Calcium Total Bilirubin AST ALT Alkaline Phosphata se Creatine Kinase Total Protein Albumin Globulin Nlgkl-3-Swqkeinpn Uejjo-4-Flcbohhkx Tlvc-5-Flfqdnzu Bsrp-9-Sckxigtl Gamma Globulins Abnorm Protein Ban d 1 Lipase 25-OH Vitamin D To gaston 1,25 Dihydroxy Vit D2 1,25 Dihydroxy Vit D3 TSH HCG, Qual Urine Color Urine Appearance Urine pH Ur Specific Gravit y Urine Protein Urine Glucose (UA) Urine Ketones Urine Blood Urine Nitrate Urine Bilirubin Urine Urobilinogen Ur Leukocyte Karon ase Urine RBC Urine WBC Ur Squamous Epith Cells Amorphous Sediment Urine Bacteria Urine Mucus Ur Random Sodium Ur Random Potassiu m Ur Random Chloride Urine Creatinine U Abnormal Prot Ba nd 2 U Abnormal Prot Ba nd 3 Pro Electrophoresi s Int Serum Immunofixati on Serum Cryoglobulin s SEBASTIAN Screen SEBASTIAN Titer SEBASTIAN Titer 2 SEBASTIAN Titer 3 SEBASTIAN Pattern SEBASTIAN Pattern 2 SEBASTIAN Pattern 3 c-ANCA Antibody p-ANCA Antibody Anti-ds DNA IgG Ab Mitochon/Sm Musc A b Titr Complement C3 Complement C4 Free Selmer Light C hains Free Lambda Light Chain Free Selmer/Lambda Ratio Hep Bs Antigen Non-reactive Hep Bs Antibody 8.6 L Hep B Core Total A b Non-reactive Hepatitis C Antibo dy Reactive H HIV 1&2 Ab & HIV 1 Ag HIV 1&2 Antibody Anti-Streptolysin O Ab Mitochondrial DNA Scrn Ref Test Comments 05/05/21 05/05/21 05/05/21 18:23 18:23 18:23 WBC RBC Hgb Hct MCV MCH MCHC RDW Plt Count MPV Neut % (Auto) Lymph % (Auto) Child[place] % (Auto) Eos % (Auto) Baso % (Auto) Neut # (Auto) Lymph # (Auto) [place] # (Auto) Eos # (Auto) Baso # (Auto) Nucleated RBC % (a uto) Nucleated RBCs # PT INR Sodium Potassium Chloride Carbon Dioxide Anion Gap BUN Creatinine GFR Calculation Glucose Calculated Osmolal ity Uric Acid Calcium Total Bilirubin AST ALT Alkaline Phosphata se Creatine Kinase Total Protein Albumin Globulin Vxszl-5-Vugzdfomj Tmahq-1-Lazqqduow Xtwz-4-Eqswxejg Paqc-7-Lfnpsjco Gamma Globulins Abnorm Protein Ban d 1 Lipase 25-OH Vitamin D To gaston 1,25 Dihydroxy Vit D2 1,25 Dihydroxy Vit D3 TSH 1.66 HCG, Qual Urine Color Urine Appearance Urine pH Ur Specific Gravit y Urine Protein Urine Glucose (UA) Urine Ketones Urine Blood Urine Nitrate Urine Bilirubin Urine Urobilinogen Ur Leukocyte Karon ase Urine RBC Urine WBC Ur Squamous Epith Cells Amorphous Sediment Urine Bacteria Urine Mucus Ur Random Sodium Ur Random Potassiu m Ur Random Chloride Urine Creatinine U Abnormal Prot Ba nd 2 U Abnormal Prot Ba nd 3 Pro Electrophoresi s Int Serum Immunofixati on Cancelled Serum Cryoglobulin s SEBASTIAN Screen Cancelled SEBASTIAN Titer Cancelled SEBASTIAN Titer 2 Cancelled SEBASTIAN Titer 3 Cancelled SEBASTIAN Pattern Cancelled SEBASTIAN Pattern 2 Cancelled SEBASTIAN Pattern 3 Cancelled c-ANCA Antibody p-ANCA Antibody Anti-ds DNA IgG Ab Cancelled Mitochon/Sm Musc A b Titr Cancelled Complement C3 132 Complement C4 20 Free Selmer Light C hains Cancelled Free Lambda Light Chain Cancelled Free Selmer/Lambda Ratio Cancelled Hep Bs Antigen Hep Bs Antibody Hep B Core Total A b Hepatitis C Antibo dy HIV 1&2 Ab & HIV 1 Ag HIV 1&2 Antibody Anti-Streptolysin O Ab Mitochondrial DNA Scrn Cancelled Ref Test Comments 05/05/21 05/05/21 05/05/21 18:23 18:23 14:38 WBC RBC Hgb Hct MCV MCH MCHC RDW Plt Count MPV Neut % (Auto) Lymph % (Auto) [place] % (Auto) Eos % (Auto) Baso % (Auto) Neut # (Auto) Lymph # (Auto) [place] # (Auto) Eos # (Auto) Baso # (Auto) Nucleated RBC % (a uto) Nucleated RBCs # PT INR Sodium Potassium Chloride Carbon Dioxide Anion Gap BUN Creatinine GFR Calculation Glucose Calculated Osmolal ity Uric Acid Calcium Total Bilirubin AST ALT Alkaline Phosphata se Creatine Kinase Total Protein Cancelled Albumin Cancelled Globulin Tqizm-0-Ppfchapjf Cancelled Hfxpn-0-Obysuqykj Cancelled Hhau-5-Afvaiyra Cancelled Newg-2-Ozyodtyo Cancelled Gamma Globulins Cancelled Abnorm Protein Ban d 1 Cancelled Lipase 25-OH Vitamin D To gaston 1,25 Dihydroxy Vit D2 1,25 Dihydroxy Vit D3 TSH HCG, Qual Urine Color Urine Appearance Urine pH Ur Specific Gravit y Urine Protein Urine Glucose (UA) Urine Ketones Urine Blood Urine Nitrate Urine Bilirubin Urine Urobilinogen Ur Leukocyte Karon ase Urine RBC Urine WBC Ur Squamous Epith Cells Amorphous Sediment Urine Bacteria Urine Mucus Ur Random Sodium 157 Ur Random Potassiu m 49 Ur Random Chloride 147 Urine Creatinine U Abnormal Prot Ba nd 2 Cancelled U Abnormal Prot Ba nd 3 Cancelled Pro Electrophoresi s Int Cancelled Serum Immunofixati on Cancelled Serum Cryoglobulin s Cancelled SEBASTIAN Screen SEBASTIAN Titer SEBASTIAN Titer 2 SEBASTIAN Titer 3 SEBASTIAN Pattern SEBASTIAN Pattern 2 SEBASTIAN Pattern 3 c-ANCA Antibody p-ANCA Antibody Anti-ds DNA IgG Ab Mitochon/Sm Musc A b Titr Complement C3 Complement C4 Free Selmer Light C hains Free Lambda Light Chain Free Selmer/Lambda Ratio Hep Bs Antigen Hep Bs Antibody Hep B Core Total A b Hepatitis C Antibo dy HIV 1&2 Ab & HIV 1 Ag HIV 1&2 Antibody Anti-Streptolysin O Ab Mitochondrial DNA Scrn Ref Test Comments 05/05/21 05/05/21 05/05/21 14:38 14:38 14:38 WBC RBC Hgb Hct MCV MCH MCHC RDW Plt Count MPV Neut % (Auto) Lymph % (Auto) [place] % (Auto) Eos % (Auto) Baso % (Auto) Neut # (Auto) Lymph # (Auto) [place] # (Auto) Eos # (Auto) Baso # (Auto) Nucleated RBC % (a uto) Nucleated RBCs # PT INR Sodium Potassium Chloride Carbon Dioxide Anion Gap BUN Creatinine GFR Calculation Glucose Calculated Osmolal ity Uric Acid Calcium Total Bilirubin AST ALT Alkaline Phosphata se Creatine Kinase 91 Total Protein Albumin Globulin Lwiaz-3-Xtpriluiq Pvuxd-1-Vpgyzbnzg Ehht-0-Tahyjlak Ilsj-3-Ulfkbtbi Gamma Globulins Abnorm Protein Ban d 1 Lipase 43 25-OH Vitamin D To gaston 1,25 Dihydroxy Vit D2 1,25 Dihydroxy Vit D3 TSH HCG, Qual Urine Color Urine Appearance Urine pH Ur Specific Gravit y Urine Protein Urine Glucose (UA) Urine Ketones Urine Blood Urine Nitrate Urine Bilirubin Urine Urobilinogen Ur Leukocyte Karon ase Urine RBC Urine WBC Ur Squamous Epith Cells Amorphous Sediment Urine Bacteria Urine Mucus Ur Random Sodium 156 Ur Random Potassiu m Ur Random Chloride Urine Creatinine 146 U Abnormal Prot Ba nd 2 U Abnormal Prot Ba nd 3 Pro Electrophoresi s Int Serum Immunofixati on Serum Cryoglobulin s SEBASTIAN Screen SEBASTIAN Titer SEBASTIAN Titer 2 SEBASTIAN Titer 3 SEBASTIAN Pattern SEBASTIAN Pattern 2 SEBASTIAN Pattern 3 c-ANCA Antibody p-ANCA Antibody Anti-ds DNA IgG Ab Mitochon/Sm Musc A b Titr Complement C3 Complement C4 Free Selmer Light C hains Free Lambda Light Chain Free Selmer/Lambda Ratio Hep Bs Antigen Hep Bs Antibody Hep B Core Total A b Hepatitis C Antibo dy HIV 1&2 Ab & HIV 1 Ag HIV 1&2 Antibody Anti-Streptolysin O Ab Mitochondrial DNA Scrn Ref Test Comments 05/05/21 05/05/21 05/05/21 14:38 14:38 14:38 WBC RBC Hgb Hct MCV MCH MCHC RDW Plt Count MPV Neut % (Auto) Lymph % (Auto) [place] % (Auto) Eos % (Auto) Baso % (Auto) Neut # (Auto) Lymph # (Auto) [place] # (Auto) Eos # (Auto) Baso # (Auto) Nucleated RBC % (a uto) Nucleated RBCs # PT INR Sodium Cancelled Potassium Cancelled Chloride Cancelled Carbon Dioxide Cancelled Anion Gap Cancelled BUN Cancelled Creatinine Cancelled GFR Calculation Cancelled Glucose Cancelled Calculated Osmolal ity Cancelled Uric Acid Calcium Cancelled Total Bilirubin Cancelled AST Cancelled ALT Cancelled Alkaline Phosphata se Cancelled Creatine Kinase Total Protein Cancelled Albumin Cancelled Globulin Cancelled Vtsdv-3-Huzrnyrks Bvmfr-4-Uhlmxyqad Sxfu-9-Yiwdpiji Tzbe-4-Uxiygcvr Gamma Globulins Abnorm Protein Ban d 1 Lipase 25-OH Vitamin D To gaston 1,25 Dihydroxy Vit D2 1,25 Dihydroxy Vit D3 TSH HCG, Qual Negative Urine Color Yellow Urine Appearance Hazy A Urine pH 5 Ur Specific Gravit y 1.020 Urine Protein Neg Urine Glucose (UA) Norm Urine Ketones Negative Urine Blood Trace H Urine Nitrate Negative Urine Bilirubin Neg Urine Urobilinogen 1 H Ur Leukocyte Karon ase Trace H Urine RBC 0-4 H Urine WBC 5-10 H Ur Squamous Epith Cells 5-10 H Amorphous Sediment Not Reportable Urine Bacteria 1+ H Urine Mucus 2+ Ur Random Sodium Ur Random Potassiu m Ur Random Chloride Urine Creatinine U Abnormal Prot Ba nd 2 U Abnormal Prot Ba nd 3 Pro Electrophoresi s Int Serum Immunofixati on Serum Cryoglobulin s SEBASTIAN Screen SEBASTIAN Titer SEBASTIAN Titer 2 SEBASTIAN Titer 3 SEBASTIAN Pattern SEBASTIAN Pattern 2 SEBASTIAN Pattern 3 c-ANCA Antibody p-ANCA Antibody Anti-ds DNA IgG Ab Mitochon/Sm Musc A b Titr Complement C3 Complement C4 Free Selmer Light C hains Free Lambda Light Chain Free Selmer/Lambda Ratio Hep Bs Antigen Hep Bs Antibody Hep B Core Total A b Hepatitis C Antibo dy HIV 1&2 Ab & HIV 1 Ag HIV 1&2 Antibody Anti-Streptolysin O Ab Mitochondrial DNA Scrn Ref Test Comments 05/05/21 14:38 WBC 11.4 H RBC 4.93 Hgb 15.6 H Hct 45.7 MCV 92.7 MCH 31.6 MCHC 34.1 RDW 12.2 Plt Count 354 MPV 10.1 Neut % (Auto) 58.8 Lymph % (Auto) 33.0 Childress % (Auto) 6.1 Eos % (Auto) 1.1 Baso % (Auto) 0.7 Neut # (Auto) 6.70 Lymph # (Auto) 3.8 Child[place] # (Auto) 0.7 Eos # (Auto) 0.1 Baso # (Auto) 0.1 Nucleated RBC % (a uto) 0 Nucleated RBCs # 0.0 PT INR Sodium Potassium Chloride Carbon Dioxide Anion Gap BUN Creatinine GFR Calculation Glucose Calculated Osmolal ity Uric Acid Calcium Total Bilirubin AST ALT Alkaline Phosphata se Creatine Kinase Total Protein Albumin Globulin Cloqm-6-Vgbkagaun Gnjgi-7-Xbhgousbu Yifd-4-Mkktuudn Lmbf-5-Rynokscd Gamma Globulins Abnorm Protein Ban d 1 Lipase 25-OH Vitamin D To gaston 1,25 Dihydroxy Vit D2 1,25 Dihydroxy Vit D3 TSH HCG, Qual Urine Color Urine Appearance Urine pH Ur Specific Gravit y Urine Protein Urine Glucose (UA) Urine Ketones Urine Blood Urine Nitrate Urine Bilirubin Urine Urobilinogen Ur Leukocyte Karon ase Urine RBC Urine WBC Ur Squamous Epith Cells Amorphous Sediment Urine Bacteria Urine Mucus Ur Random Sodium Ur Random Potassiu m Ur Random Chloride Urine Creatinine U Abnormal Prot Ba nd 2 U Abnormal Prot Ba nd 3 Pro Electrophoresi s Int Serum Immunofixati on Serum Cryoglobulin s SEBASTIAN Screen SEBASTIAN Titer SEBASTIAN Titer 2 SEBASTIAN Titer 3 SEBASTIAN Pattern SEBASTIAN Pattern 2 SEBASTIAN Pattern 3 c-ANCA Antibody p-ANCA Antibody Anti-ds DNA IgG Ab Mitochon/Sm Musc A b Titr Complement C3 Complement C4 Free Selmer Light C hains Free Lambda Light Chain Free Selmer/Lambda Ratio Hep Bs Antigen Hep Bs Antibody Hep B Core Total A b Hepatitis C Antibo dy HIV 1&2 Ab & HIV 1 Ag HIV 1&2 Antibody Anti-Streptolysin O Ab Mitochondrial DNA Scrn Ref Test Comments Vitals: Last Vital Signs Temp 97.7 F 05/06/21 07:49 Pulse 55 L 05/06/21 07:49 Resp 16 05/06/21 07:49 BP 131/73 05/06/21 07:49 Pulse Ox 95 05/06/21 07:49 Discharge Plan Discharge Patient Disposition: Home Condition: Stable Prescriptions: No Action No Known Home Medications RF: 0 Discharge Orders: Discharge Order (Routine); Ordered 05/06/21 Ordered By: Bryan Florence Discharge Diet: Usual diet Discharge Activity: Increase activity as tolerated Patient Instructions: Abdominal Pain - Adult, How to Stop Smoking (GEN), Cigarette Smoking and Your Health (GEN) Activity Restrictions/Additional Instructions: Please follow-up with your primary doctor regarding lower right quadrant pain. Please schedule appointment with your cyber analyst for reassessment ultrasound. Otherwise discussed with your primary doctor regarding your past hip problems. Sometimes hip pain may refer to the groin area, and perhaps right lower abdomen. Please continue attempts to stop smoking. Discharge Attestations Time Spent in Discharge Care*: greater than 30 min Quality Metrics Clinical Quality Measures During this hospital stay, did patient experience: None Coding Level of Care Code Acute Chg FW DC note Diagnoses Abdominal pain of unknown cause R10.9 Smoker F17.200
[2021-05-06 11:11] VITALS: BP 131/79; PULSE 65; RESP 16; TEMP 36.7; O2SAT 97
--- NOTE | 2021-05-06 11:29 | PM.PN ---
Subjective Subjective: Interval history: Indu is doing well today, she is keen to go home. Feels much better since hospitalization. Repeat lab tests looked entirely normal. Eating and drinking well. Passing urine normally. Abdominal pain seems to be a lot better. Vitals/I&O/Wt Last Vital Signs Temp 98.1 F 05/06/21 11:11 Pulse 65 05/06/21 11:11 Resp 16 05/06/21 11:11 BP 131/79 05/06/21 11:11 Pulse Ox 97 05/06/21 11:11 05/05/21 05/06/21 05/06/21 22:59 06:59 14:59 Intake Total 320 / 320 240 / 240 Output Total 350 / 350 500 / 850 Balance -350 / -350 -180 / -530 240 / 240 Weight last 48 hrs Weight 73.028 kg Weight 74.843 kg Physical Exam Narrative: EXAM NARRATIVE: Constitutional: Awake, comfortable HEENT: Wet mucosa, no jvp, non icteric Lungs: Bilaterally clear without discernible wheeze, rales in all lung zones CVS: S1 S2, no murmurs Abdo: Soft, BS ok Ext 4: Minimal edema, peripheral perfusion with no cyanosis Neurological: Grossly non-focal Data : 05/05/21 14:38 05/05/21 21:11 A&P Additional A&P Information 1. Acute kidney injury We are suspicious this may have been lab error. No need for further nephrology follow-up at this time. 2. Abdominal pain Management per primary team, this does appear to be a lot better as well. Follow with primary care doctor following discharge. Nathan Magana MD Nephrology [phone] Patient seen and examined via telemedicine, with the assistance of the bedside RN > 15 min spent in evaluation and mgmt of patient Attestations Medical Necessity Statement*: Eval for DELTA Coding Level of Care Code Acute Jeeper Operator for Chg Kash
--- NOTE | 2021-05-10 11:44 | PC.SOCIAL ---
discharge follow up call made. patient will make her follow up appointment with her pcp and with gynecology. has a date and time scheduled for an ultrasound at the [facility] in June. Patient had no new prescriptions at discharge.
== END 2021-05-06 11:37 | disposition home or self-care (01) ==
LOC: ER 16:40 → MEDSURG 18:12
PROVIDERS: Internal Medicine Nephrology; Admitting Provider Internal Medicine; Emergency Provider Physician Assistant; Visit Provider Internal Medicine
DX: N17.9 Acute kidney failure, unspecified (principal); E87.1 Hypo-osmolality and hyponatremia; R74.01 Elevation of levels of liver transaminase levels; R10.9 Unspecified abdominal pain; F17.210 Nicotine dependence, cigarettes, uncomplicated; F19.11 Other psychoactive substance abuse, in remission; Z86.19 Personal history of other infectious and parasitic diseases; Z90.2 Acquired absence of lung [part of]; Z85.41 Personal history of malignant neoplasm of cervix uteri
CPT/HCPCS: 36415; 74176; 80053; 81001; 82436; 82550; 82570; 82595; 82652; 83516; 83690; 83883; 84133; 84155; 84165; 84260; 84300; 84443; 84550; 84703; 85025; 85610; 86038; 86060; 86160; 86705; 86706; 86803; 87340; 87806; 96360; 96361; 99285; G0378; J7030

== ENCOUNTER → 2021-08-02 12:35 | Outpatient (BNVA) | payer OTHER, SELFPAY | PROVIDERS: PCP Physician Assistant; Visit Provider Internal Medicine | DX: Z01.812 Encounter for preprocedural laboratory examination (principal); Z20.822 Contact with and (suspected) exposure to COVID-19; R10.13 Epigastric pain | CPT/HCPCS: 87635 ==

== ENCOUNTER 2021-08-08 06:42 | Day surgery (SDC) | payer OTHER, SELFPAY ==
[2021-08-04 09:29] VITALS: BMI 27.4
--- NOTE | 2021-08-08 07:20 | ANES.PREANE2 ---
Pre-Anesthetic Assessment Pre-Anesthetic Assessment: Height/Weight: Height 1.63 m Weight 72.575 kg Preop Diagnosis: epig pain Proposed Procedure: Operation Date: 08/08/21 08:00 Proposed Procedures p EGD 92403 R10.13(Not Applicable) - Asa Ervin MD Familial anesthetic complications: None Was Beta Coty taken within 24 hours: N/A Was Clonidine taken within 24 hours: N/A Last intake: > 8 hrs Social: Social History: Tobacco and No alcohol Exam: Pre-Anes Outpt Exam: alert, oriented x 3 and regular rate & rhythm Additional Exam Findings (including area of procedure): b/l wheeze and coarse breath sounds Airway: Cervical ROM: WNL MP: 1 Dentition: Loose (bottom tooth loose) and Other (missing) Pulmonary: Pulmonary: None reported Comments: Pneumonia s/p lobectomy jun 2013 Congested - seasonal Anesthetic Plan: ASA status: 2 Anesthesia: General and MAC Risk of > 500 ml blood loss (7ml/kg in children): No PFSH Anesthesia PFSH: Medical History Cervical cancer Hepatitis C virus infection cured after antiviral drug therapy Quit drug use in remote past Smoker Surgical History H/O: hysterectomy History of lung surgery Family History Grandmother Chronic kidney disease (CKD) Social History Smoking and tobacco status: current every day smoker cigarettes Packs smoked per day: 0.25 Alcohol intake: never Lives independently: Yes Household members: spouse Marital status: Data Anesthesia Cardiac Studies: No Data to Display
[2021-08-08 07:37] VITALS: BP 144/84; PULSE 68; RESP 18; TEMP 36.3; O2SAT 95
--- NOTE | 2021-08-08 07:44 | W.PM.OPSFHP ---
Same Day Surgery H&P Indication for Procedure/HPI DATE OF PROCEDURE: August 08, 2021 CHIEF COMPLAINT/INDICATIONFOR SURGICAL PROCEDURE: Postprandial abdominal pain PREOP DIAGNOSIS: epig pain PLANNED PROCEDRUE: Operation Date: 08/08/21 08:00 Proposed Procedures p EGD 09725 R10.13(Not Applicable) - Asa Ervin MD Medications/Allergies* Home Medications Medication Instructions Recorded Confirmed Type baclofen 20 mg PO DAILY 08/04/21 08/08/21 History Allergies/Adverse Reactions Allergy/AdvReac Type Severity Reaction Status Date / Time Penicillins Allergy Unknown UNKNOWN Verified 08/04/21 09:26 Pertussis Vaccines Allergy ALGY-Rash Verified 08/08/21 07:36 Pertinent History/Comorbid Conditions* Medical History Cervical cancer Hepatitis C virus infection cured after antiviral drug therapy Quit drug use in remote past Smoker Surgical History (Updated 05/05/21 @ 21:01 by Bryan Florence MD) H/O: hysterectomy History of lung surgery Family History (Updated 05/05/21 @ 21:03 by Bryan Florence MD) Chronic kidney disease (CKD) Grandmother Social History Smoking and tobacco status: current every day smoker cigarettes Packs smoked per day: 0.25 Alcohol intake: never Lives independently: Yes Household members: spouse Marital status: Pertinent Exam Findings alert, oriented x 3, clear to auscultation bilaterally, regular rate & rhythm, operative site marked and procedure specific exam findings Recommendations Surgery/Procedure today Coding Level of Care Code Acute 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
[2021-08-08] MEDS: sodium chloride 0.9% 1,000 ML 30 ML IV (08:03)
[2021-08-08 08:40] VITALS: BP 104/70; PULSE 70; RESP 16; TEMP 36.3; O2SAT 95
[2021-08-08 08:55] VITALS: BP 114/78; PULSE 67; RESP 18; O2SAT 97
--- NOTE | 2021-08-08 14:25 | ANE.PACU2 ---
Inpatient post-anesthesia follow up: Airway intact: Yes Vital signs: Temperature 97.4 F Pulse Rate 67 Respiratory Rate 18 Blood Pressure 114/78 Pulse Oximetry 97 Oxygen Delivery Me thod Room Air Oxygen Flow Rate Fraction of Inspir ed Oxygen Hydration adequate: Yes Nausea and vomiting: No Pain level: 1 Mental status: Baseline
== END 2021-08-08 09:08 | disposition home or self-care (01) ==
PROVIDERS: PCP Physician Assistant; Visit Provider Internal Medicine
PROC: 0DJ08ZZ Inspection of Upper Intestinal Tract, Via Natural or Artificial Opening Endoscopic (ICD-10-PCS; CPT 43235; principal; 2021-08-08 08:00)
DX: R10.13 Epigastric pain (principal); F17.210 Nicotine dependence, cigarettes, uncomplicated; Z85.41 Personal history of malignant neoplasm of cervix uteri; Z90.710 Acquired absence of both cervix and uterus; Z86.19 Personal history of other infectious and parasitic diseases; Z88.0 Allergy status to penicillin
CPT/HCPCS: 43235; 96360; J2704; J7030

== ENCOUNTER → 2022-11-27 13:54 | Outpatient (BNVA) | payer OTHER, SELFPAY | PROVIDERS: PCP Physician Assistant; Visit Provider Nurse Practitioner Family | DX: M62.830 Muscle spasm of back (principal) | CPT/HCPCS: 72100 ==

== ENCOUNTER → 2023-09-22 12:11 | Outpatient (BNVA) | payer BC, SELFPAY | PROVIDERS: PCP Physician Assistant; Visit Provider Nurse Practitioner | DX: R05.9 Cough, unspecified (principal) | CPT/HCPCS: 87400; 87426 ==

== ENCOUNTER → 2024-07-17 15:56 | Outpatient (BNVA) | payer BC, SELFPAY | PROVIDERS: PCP Physician Assistant; Visit Provider Internal Medicine Cardiovascular Disease | DX: R07.9 Chest pain, unspecified (principal); R06.02 Shortness of breath | CPT/HCPCS: 93005 ==

== ENCOUNTER 2024-08-22 13:01 | Outpatient (CLI) | payer BC, SELFPAY ==
--- NOTE | 2024-08-22 | ECG_ITS ---
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 Baseline heart rate was 82 beats per minute. Baseline blood pressure was 113/72 millimeters of mercury. Target heart rate was 180 beats per minute. Maximum heart rate achieved was 157, which was 87% of the target heart rate. Maximum blood pressure was 176/88 millimeters of mercury. Total exercise time was 9 minutes 51 seconds. Maximum METs achieved was 13.5, maximum VO2 was 47.3. The reason for ending the test was maximum effort achieved. The patient complained of shortness of breath during the stress which then resolved. ELECTROCARDIOGRAM: BASELINE: Showed sinus rhythm, normal axis, no significant ST-T changes at the baseline noted. No arrhythmia noted. EXERCISE: At the peak exercise level, no significant ST-T changes suggestive of ischemia noted. No arrhythmia noted. RECOVERY: During the recovery period, heart rate dropped appropriately. No significant ST-T changes suggestive of ischemia were noted. No arrhythmia noted. CONCLUSION: 1. Exercise capacity good. 2. Heart rate response was appropriate. 3. Blood pressure response was appropriate. 4. Symptoms not suggestive of ischemia. 5. Electrocardiogram portion of the stress test was not suggestive of ischemia. Electronically Signed On 09-13-2024 18:27:43 DECAY CONTROL OPERATOR by SHAYNA GORDILLO [id number]
[2024-08-22 13:10] VITALS: BMI 26.1
[2024-08-22 13:40] VITALS: BP 117/73; PULSE 77
--- NOTE | 2024-08-22 14:01 | USCV_ITS ---
Indu Thompson Age: 39 Gender: F : 1985 Exam Date: 08/22/2024 14:53 Ordering Phys: Leonides Gordillo MD ([email or web address]) Technologist: [place] [facility] [place]: [place]B BP: 118 / 74 HR: 68 Rhythm: Sinus Technical Quality: Adequate MEASUREMENTS (Male / Female) Normal Values 2D ECHO LVOT Diameter 2.1 cm LV Ejection Fraction MOD 4C 68.7 % LV Ejection Fraction MOD 2C 62.0 % LV Ejection Fraction 2C AL 63.3 % LA Diameter 2.9 cm RA Systolic Volume 4C AL 28.7 ml RA Systolic Volume 4C MOD 26.8 ml LA Sys Volume AL 28.6 cm cubed LA Sys Volume Index AL 16.1 cm cubed/m squared Aorta at Sinotubular Diameter 2.0 cm IVC Diameter 2.0 cm M-MODE LA Ao Ratio MM 1.0 AV Cusp Separation MM 1.8 cm DOPPLER AV Peak Velocity 100.0 cm/s LVOT Peak Velocity 77.0 cm/s AV Area Cont Eq vti 2.7 cm squared AV Area Cont Eq pk 2.6 cm squared MV Peak Velocity 79.0 cm/s MV Area PHT 3.2 cm squared Mitral E to A Ratio 1.3 TV Peak E Velocity 66.0 cm/s PV Peak Velocity 83.0 cm/s FINDINGS Left Ventricle Left ventricle is normal size. LV systolic function is normal with EF of 55 to 60%. No regional wall motion abnormalities are seen. Right Ventricle Normal in size and function Right Atrium Normal in size Left Atrium Normal in size Mitral Valve Structurally normal mitral valve. Mild mitral regurgitation. Aortic Valve Structurally normal aortic valve. No significant stenosis or regurgitation. Tricuspid Valve Insufficient TR jet to calculate RVSP Pulmonic Valve Not well visualized Pericardium Normal Aorta Normal in size IVC Appears to be normal CONCLUSIONS LV systolic function is normal with EF of 55-60% Mild mitral regurgitation No comparison studies are available. Shaka Riley MD (Electronically Signed) Final Date: 06 September 2024 10:47 S
== END 2024-08-22 13:02 | disposition home or self-care (01) ==
PROVIDERS: PCP Physician Assistant; Visit Provider Internal Medicine Cardiovascular Disease
DX: R07.9 Chest pain, unspecified (principal); R06.02 Shortness of breath
CPT/HCPCS: 93017; 93306

== ENCOUNTER 2024-11-10 13:56 | Outpatient (CLI) | payer BC, SELFPAY ==
--- NOTE | 2024-11-10 13:58 | MM_ITS ---
WS: [id number] BILATERAL 3D TOMOSYNTHESIS DIGITAL SCREENING MAMMOGRAPHY WITH CAD CLINICAL INFORMATION: SCREENING HISTORY: Screening mammogram. No current complaints. COMPARISON: 2018 TECHNIQUE: Bilateral CC and MLO views. FINDINGS: The breasts are composed of heterogeneous fibroglandular density tissue, which can limit the detection of small underlying mass lesions. No suspicious mass, asymmetry, calcifications, or architectural distortion. No evidence of malignancy. MM/MM scr tomosynthesis [id number] IMPRESSION: DENSITY: The breasts are heterogeneously dense, which may obscure small masses. BI-RADS: 1 - Negative FOLLOW UP: 1 Year Follow-up Recommend return to annual screening mammography.
== END 2024-11-10 13:57 | disposition home or self-care (01) ==
PROVIDERS: PCP Physician Assistant; Visit Provider Nurse Practitioner Family
DX: Z12.31 Encounter for screening mammogram for malignant neoplasm of breast (principal); R92.333 Mammographic heterogeneous density, bilateral breasts
CPT/HCPCS: 77063; 77067